=== PATIENT | female | born 1995 | race Caucasian/White ===

== ENCOUNTER 2020-05-15 11:13 | Emergency (ER) | payer BC, OTHER ==
[2020-05-15] MEDS ORDERED: Sodium Chloride 0.9% 10 ML Syringe FLUSH PRN (11:25)
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
[2020-05-15 12:05] LABS: ANION GAP 21.9 mmol/L (5-15); CHLORIDE,CL 105 mmol/L (98-115); SODIUM,NA 142 mmol/L (136-145)
[2020-05-15 12:08] LABS: BARBITURATE SCREEN,URINE NEGATIVE (NEGATIVE); BENZODIAZEPINES SCREEN,URINE NEGATIVE (NEGATIVE); TCA SCREEN,URINE NEGATIVE (NEGATIVE); THC SCREEN,URINE 50 NG/ML POSITIVE (NEGATIVE)
--- NOTE | 2020-05-15 12:21 | CT ---
[id number] CT/CT Head WO IV EXAM: NONCONTRAST HEAD CT INDICATION: ALTERED MENTAL STATUS. COMPARISON: None. DISCUSSION: The ventricles and sulci are normal in size and configuration. The [place] and white matter are normal in attenuation. No mass effect or midline shift. No acute hemorrhage or extra-axial fluid collection. No acute territorial infarct is identified. A limited look at the orbits and paranasal sinuses is unremarkable. IMPRESSION: 1. Negative exam. González Henson MD 05/15/20 [id number] Thank you for allowing us to participate in the care of your patient.
== END 2020-05-15 15:00 | disposition home or self-care (01) ==
LOC: KA.ED 11:13
DX: R40.4 Transient alteration of awareness (principal); R73.9 Hyperglycemia, unspecified
CPT/HCPCS: 36415; 70450; 80053; 80305-QW; 80307; 81001; 84702; 85025; 93005; 99283; 99285-25